=== PATIENT | female | born 1965 ===

== ENCOUNTER 2017-04-06 07:10 | Day surgery (SDC) | payer MEDICARE, OTHER ==
[2017-03-29 09:49] VITALS: BMI 34.3
[2017-04-06 07:30] LABS: ADD MANUAL DIFF? NO
[2017-04-06 07:36] LABS: BASO # 0.01 K/mm3 (0.0-2.0); BASO % 0.1 % (0.0-3.0); EOS % 0.3 % (1.5-5.0); GRAN # 6.64 (1.4-6.5); GRAN % 73.4 % (50.0-68.0); HEMATOCRIT 40.6 % (36.0-48.0); LYMPH # 1.5 (1.2-3.4); LYMPH % 16.8 % (22.0-35.0); MEAN CELL VOLUME 87.5 fL (80.0-105.0); MEAN CORPUSCULAR HEMOGLOBIN 27.2 pg (25.0-35.0); MEAN PLATELET VOLUME 8.9 fl (7.0-11.0); MONO # 0.9 (0.1-0.6); MONO % 9.4 % (1.0-6.0); PLATELET COUNT 210 10^3/uL (120.0-450.0); RED CELL DISTRIBUTION WIDTH 15.5 % (11.5-14.5); WHITE BLOOD COUNT 9.1 10^3/ul (4.5-11.0)
[2017-04-06 07:46] LABS: INR 0.92 (0.93-1.08); PARTIAL THROMBOPLASTIN TIME 23.3 Seconds (23.7-30.8)
[2017-04-06 07:47] LABS: BLOOD UREA NITROGEN 21 mg/dL (7-21); CALCIUM 9.2 mg/dL (8.4-10.5); CARBON DIOXIDE 28 mmol/L (21-33); CHLORIDE 106 mmol/L (98-107); GFR AFRICAN-AMERICAN > 60; GLUCOSE,RANDOM 97 mg/dL (70-110); POTASSIUM 4.5 mmol/L (3.6-5.0); SODIUM 142 mmol/L (132-148)
--- NOTE | 2017-04-06 07:54 | CP.SDSHP ---
Same Day Surgery H & P - History Proposed Procedure: insertion of venous port. Pre-Op Diagnosis: uterine cancer. - Previous Medical/Surgical History Cardiac: Hypertension, ASHD/CAD Pulmonary: Asthma Endocrine/Metabolic: Obesity Neuro: Backaches Misc: Anemia Pain: 0. No Pain Previous Surgical History: hystrectomy.cardiac cath. - Allergies Allergies: Allergies No Known Allergies Allergy (Verified 08/17/16 11:55) - Physical Exam General Appearance: WNL. Vital Signs: Vital Signs 04/06/17 07:25 Temperature 97.9 F Pulse Rate 54 L Respiratory 18 Rate Blood Pressure 133/78 O2 Sat by Pulse 100 Oximetry Mental Status: Alert & Oriented x3 Neuro: WNL Heart: WNL Lungs: WNL GI: WNL - {Optional Preform as Required} Other Pertinent Findings: HX OF ANXIETY ,DEORESSIONGASTRIC BYPASS . - Impression Impression: UTRINE CANCER S/P HYSTRECOMY, NEEDS CHEMO. - Date & Time Date: 04/06/17 Time: 07:53 Short Stay Discharge - Short Stay Discharge Admitting Diagnosis/Reason for Visit: UTERINE CA C55 Disposition: HOME/ ROUTINE Referrals: Juan Mendosa MD [Primary Care Provider] -
[2017-04-06 08:13] VITALS: TEMP 97.9
[2017-04-06] MEDS ORDERED: Lidocaine 2% Inj (20ml) ONE (11:27)
[2017-04-06] MEDS ORDERED: Midazolam 2 MG/2 ML VIAL ONE ×2 (11:47→12:02)
[2017-04-06] MEDS ORDERED: Oxycodone/Acetaminophen 5/325 mg Tab PO PRN (12:43)
[2017-04-06] MEDS ORDERED: Sodium Chloride 0.45% 1,000 ML IV SCH (12:45)
[2017-04-06 13:39] VITALS: BP 124/65; PULSE 48; RESP 20; O2SAT 98
--- NOTE | 2017-04-06 17:32 | VASCULAR ---
PROCEDURE: Ultrasound and fluoroscopic right internal jugular venous access port. CLINICAL HISTORY: Uterine carcinoma.Venous port for chemotherapy. PHYSICIAN(S): Yovany Andre M.D. TECHNIQUE: The relative risks and indications of the procedure were explained to the patient and consent obtained. The patient was placed supine on the arteriogram table and the right neck and chest prepped and draped in the usual sterile fashion. Conscious sedation monitoring was provided throughout the procedure by a nurse. Antibiotics were given prior to the procedure. Under direct ultrasound guidance, the right internal jugular vein was punctured with a micro-puncture set. A 0.035 angled Glidewire was advanced into the IVC. A 4 cm incision was made below the right clavicle and the pocket blunted dissected. A 8 [place] single-lumen catheter, 19 cm long, was advanced to the SVC/RA junction. The catheter was trimmed and attached to the port. The port aspirates and injects easily. The port was placed in the pocket and closed in 2 layers. The patient tolerated the procedure well. IMPRESSION: Ultrasound and fluoroscopically placed right internal jugular venous access port.
== END 2017-04-06 15:10 | disposition home or self-care (01) ==
LOC: SDSVAS 07:10
PROVIDERS: ATTEND Radiology Vascular & Interventional Radiology
DX: C55 Malignant neoplasm of uterus, part unspecified (principal); I10 Essential (primary) hypertension; I25.10 Atherosclerotic heart disease of native coronary artery without angina pectoris; J45.909 Unspecified asthma, uncomplicated; D64.9 Anemia, unspecified; E66.9 Obesity, unspecified; Z68.34 Body mass index [BMI] 34.0-34.9, adult
CPT/HCPCS: 36415; 36561; 76937; 77001; 80048; 85025; 85610; 85730; 99152; 99153; C1769; C1788; J0690; J1644; J2250; J2405; J3010; J7030

== ENCOUNTER 2018-04-19 10:10 | Day surgery (SDC) | payer MEDICARE, OTHER ==
[2018-04-17 12:10] VITALS: BMI 34.9
[2018-04-19 10:43] LABS: BASO # 0.01 K/mm3 (0.0-2.0); BASO % 0.1 % (0.0-3.0); EOS % 0.5 % (1.5-5.0); GRAN # 5.99 (1.4-6.5); GRAN % 73.8 % (50.0-68.0); HEMOGLOBIN 13.8 g/dL (12.0-16.0); LYMPH # 1.4 (1.2-3.4); LYMPH % 16.6 % (22.0-35.0); MEAN CELL VOLUME 90.7 fl (80.0-105.0); MEAN CORPUSCULAR HEMOGLOBIN 29.9 pg (25.0-35.0); MEAN CORPUSCULAR HGB CONC 32.9 g/dl (31.0-37.0); MEAN PLATELET VOLUME 8.9 fl (7.0-11.0); MONO # 0.7 (0.1-0.6); RBC 4.62 10^6/uL (3.5-6.1); WHITE BLOOD COUNT 8.1 10^3/ul (4.5-11.0)
[2018-04-19 10:54] LABS: BLOOD UREA NITROGEN 17 mg/dL (7-21); GFR AFRICAN-AMERICAN > 60; GFR NON-AFRICAN AMERICAN > 60
[2018-04-19 10:57] LABS: INR 0.97 (0.93-1.08); PARTIAL THROMBOPLASTIN TIME 26.7 Seconds (25.1-36.5); PROTHROMBIN TIME 11.1 SECONDS (9.4-12.5)
[2018-04-19] MEDS ORDERED: Lidocaine 2% Inj (20ml) ONE (13:20)
[2018-04-19] MEDS ORDERED: Midazolam 2 MG/2 ML VIAL ONE (13:21)
[2018-04-19 15:16] VITALS: RESP 18; TEMP 98.6
[2018-04-19 15:45] VITALS: BP 139/74; PULSE 68; O2SAT 98
--- NOTE | 2018-04-19 20:02 | VASCULAR ---
PROCEDURE: Removal of tunneled right internal jugular venous access port. CLINICAL HISTORY: Uterine CA. Completed chemotherapy. Remove port PHYSICIAN(S): Yovany Andre M.D. TECHNIQUE: The relative risks and indications of the procedure were explained to the patient and consent obtained. The patient was placed supine on the arteriogram table and the right neck and chest prepped and draped usual sterile fashion. Conscious sedation and monitoring were provided throughout the procedure by a nurse. Antibiotics were given prior to the procedure. 1% Xylocaine was used to anesthetize the skin and soft tissues at the port. A 4 cm incision was made. The port was bluntly dissected and removed. The catheter was removed under fluoroscopic guidance. No retained catheter fragments were seen. The pocket was lavaged with normal saline. The pocket was closed in 2 layers. The patient tolerated the procedure well. IMPRESSION: 1. Removal of tunneled right internal jugular venous access port.
== END 2018-04-19 16:20 | disposition home or self-care (01) ==
LOC: SDS 10:10
PROVIDERS: ATTEND Radiology Vascular & Interventional Radiology
DX: Z45.2 Encounter for adjustment and management of vascular access device (principal); Z85.42 Personal history of malignant neoplasm of other parts of uterus; Z92.21 Personal history of antineoplastic chemotherapy; I10 Essential (primary) hypertension
CPT/HCPCS: 36415; 36590; 80048; 85025; 85610; 85730; 99152; J1644; J2250; J3010